=== PATIENT | male | born 1965 | race Caucasian/White ===

== ENCOUNTER 2018-10-15 13:50 | Emergency (ER) | payer MEDICARE ==
[~2018-10-15] VITALS: Ht 182.9 cm; Wt 97.5 kg
[2018-10-15 13:51] VITALS: BP 146/87
[2018-10-15] MEDS ORDERED: Glucagon 1mg Inj IV ONE (14:15)
[2018-10-15] MEDS ORDERED: GABAPENTIN600 MG ORAL (14:17)
[2018-10-15] MEDS ORDERED: COUMADIN5 MG ORAL (14:17)
[2018-10-15] MEDS ORDERED: BACLOFEN10 MG ORAL (14:17)
[2018-10-15] MEDS ORDERED: COLACE100 MG ORAL (14:17)
[2018-10-15] MEDS ORDERED: ACETAMINOPHEN325 M1 ORAL (14:17)
[2018-10-15] MEDS ORDERED: METOPROLOL SUCC25 MG ORAL (14:17)
[2018-10-15] MEDS ORDERED: SENNOSIDES8.6 MG ORAL (14:17)
--- NOTE | 2018-10-15 14:40 | Emergency Room Report ---
History of Present Illness General Chief Complaint: General Complaint Source: Patient, Medical Record, EMS Present Illness HPI This patient is brought in by EMS from a [place] [facility] facility. There is concerned this patient may have an esophageal food impaction. The patient reports that after eating lunch he reports he feels like something is stuck in his throat. He states that he was eating that she pulls when this occurred. He states he is unable to swallow anything since. He states he has had several episodes of vomiting since. He has multiple medical problems to include a PE for which he is on Coumadin, muscular dystrophy. He denies recent illness. He has no other complaints. Allergies: Coded Allergies: ACETAMINOPHEN (Verified Allergy, Intermediate, 10/15/18) HYDROCODONE (Verified Allergy, Intermediate, 10/15/18) Patient History Past Medical History: see triage record, HTN, other - Muscular dystrophy, Hx of PE (on coumadin) Past Surgical History: luana Social History: Denies: smoking, alcohol use, drug use Reviewed Nursing Documentation: PMH: Agreed; PSxH: Agreed Nursing Documentation-PMH Hx Hypertension: Yes Review of Systems All Other Systems: negative except mentioned in HPI Physical Exam Vital Signs Date Time Temp Pulse Resp B/P (MAP) Pulse Ox O2 Delivery O2 Flow Rate FiO2 10/15/18 13:36 98.8 84 20 130/92 98 Room Air Sp02 EP Interpretation: reviewed, normal General Appearance: no apparent distress, alert, GCS 15, non-toxic Head: normocephalic, atraumatic Eyes: bilateral eye normal inspection, bilateral eye PERRL ENT: hearing grossly normal, normal pharynx, no angioedema, normal voice Neck: full range of motion, supple/symm/no masses Respiratory: chest non-tender, lungs clear, normal breath sounds, no respiratory distress, no retraction, no accessory muscle use, speaking full sentences Cardiovascular #1: regular rate, rhythm, no edema Gastrointestinal: normal bowel sounds, non tender, soft, non-distended, no guarding, no rebound Rectal: deferred Musculoskeletal: back normal, gait/station normal, normal range of motion, non- tender Neurologic: alert, oriented x3, responsive, motor strength/tone normal, sensory intact, speech normal Psychiatric: judgement/insight normal, memory normal, mood/affect normal, no suicidal/homicidal ideation Skin: warm/dry, well hydrated, other - See RN skin exam for details Medical Decision Making Diagnostic Impression: Primary Impression: Food impaction of esophagus ER Course This patient has a history concerning for an esophageal food impaction. I did give her IV glucagon and tried a carbonated drink ingestion to see if the food impaction would pass spontaneously. However this was unsuccessful. I suspect contributing factors that this patient has a history of muscular dystrophy. Patient will be admitted for further evaluation by gastroenterology. The patient has [employer] and [place] requested [facility] transfer to [facility]. He is stable for transfer. Laboratory Tests Test 10/15/18 14:40 White Blood Count 5.6 K/UL (4.8-10.8) Red Blood Count 5.94 M/UL (4.70-6.10) Hemoglobin 15.8 G/DL (14.2-18.0) Hematocrit 50.8 % (42.0-52.0) Mean Corpuscular Volume 86 FL (80-99) Mean Corpuscular Hemoglobin 26.5 PG (27.0-31.0) L Mean Corpuscular Hemoglobin Concent 31.0 G/DL (32.0-36.0) L Red Cell Distribution Width 16.4 % (11.6-14.8) H Platelet Count 220 K/UL (150-450) Mean Platelet Volume 6.1 FL (6.5-10.1) L Neutrophils (%) (Auto) 71.2 % (45.0-75.0) Lymphocytes (%) (Auto) 18.4 % (20.0-45.0) L Monocytes (%) (Auto) 7.7 % (1.0-10.0) Eosinophils (%) (Auto) 2.2 % (0.0-3.0) Basophils (%) (Auto) 0.5 % (0.0-2.0) Sodium Level 144 MMOL/L (136-145) Potassium Level 3.8 MMOL/L (3.5-5.1) Chloride Level 105 MMOL/L (98-107) Carbon Dioxide Level 33 MMOL/L (21-32) H Anion Gap 6 mmol/L (5-15) Blood Urea Nitrogen 12 mg/dL (7-18) Creatinine 0.7 MG/DL (0.55-1.30) Estimate Glomerular Filtration Rate > 60 mL/min (>60) Glucose Level 87 MG/DL (74-106) Calcium Level 9.7 MG/DL (8.5-10.1) Total Bilirubin 0.5 MG/DL (0.2-1.0) Aspartate Amino Transferase (AST) 30 U/L (15-37) Alanine Aminotransferase (ALT) 50 U/L (12-78) Alkaline Phosphatase 162 U/L (46-116) H Total Protein 8.6 G/DL (6.4-8.2) H Albumin 3.1 G/DL (3.4-5.0) L Globulin 5.5 g/dL Albumin/Globulin Ratio 0.6 (1.0-2.7) L Last Vital Signs Date Time Temp Pulse Resp B/P (MAP) Pulse Ox O2 Delivery O2 Flow Rate FiO2 10/15/18 13:51 98.8 60 16 146/87 93 Room Air Disposition: XFER SHT-TRM HOSP Condition: Stable Referrals: Jorge L Hassan DO (PCP) Fannie Garcia DO Oct 15, 2018 14:40
[2018-10-15 14:59] LABS: BASOPHILS % (AUTO) 0.5 % (0.0-2.0); EOSINOPHILS % (AUTO) 2.2 % (0.0-3.0); HEMATOCRIT 50.8 % (42.0-52.0); HEMOGLOBIN 15.8 G/DL (14.2-18.0); LYMPHOCYTES % (AUTO) 18.4 % (20.0-45.0); MEAN CORPUSCULAR VOLUME 86 FL (80-99); MONOCYTES % (AUTO) 7.7 % (1.0-10.0); NEUTROPHILS % (AUTO) 71.2 % (45.0-75.0); PLATELET COUNT 220 K/UL (150-450); RED BLOOD COUNT 5.94 M/UL (4.70-6.10); RED CELL DISTRIBUTION WIDTH 16.4 % (11.6-14.8); WHITE BLOOD COUNT 5.6 K/UL (4.8-10.8)
[2018-10-15 15:11] LABS: ANION GAP 6 mmol/L (5-15); BLOOD UREA NITROGEN 12 mg/dL (7-18); CALCIUM 9.7 MG/DL (8.5-10.1); CARBON DIOXIDE 33 MMOL/L (21-32); CHLORIDE 105 MMOL/L (98-107); CREATININE 0.7 MG/DL (0.55-1.30); POTASSIUM 3.8 MMOL/L (3.5-5.1); SODIUM 144 MMOL/L (136-145)
[2018-10-15 15:16] LABS: ALANINE AMINOTRANSFERASE 50 U/L (12-78); ALBUMIN 3.1 G/DL (3.4-5.0); ALBUMIN/GLOBULIN RATIO 0.6 (1.0-2.7); ALKALINE PHOSPHATASE 162 U/L (46-116); ASPARTATE AMINO TRANSFERASE 30 U/L (15-37); BILIRUBIN,TOTAL 0.5 MG/DL (0.2-1.0)
[2018-10-15 15:56] VITALS: BP 127/85
[2018-10-15 18:32] VITALS: BP 129/98
[2018-10-15] MEDS ORDERED: GABAPENTIN300 MG ORAL (18:32)
== END 2018-10-15 18:33 | disposition short-term general hospital (02) ==
LOC: EDBD 13:50 → EMR 14:34
DX: T18.128A Food in esophagus causing other injury, initial encounter (principal); X58.XXXA Exposure to other specified factors, initial encounter; Y92.129 Unspecified place in nursing home as the place of occurrence of the external cause; I10 Essential (primary) hypertension; Z88.6 Allergy status to analgesic agent
CPT/HCPCS: 36415; 80053; 85025; 96361; 96374; 99285; J1610